=== PATIENT | male | born 1980 | race Caucasian/White ===

== ENCOUNTER 2022-12-13 14:55 | Inpatient (IN) | payer MEDICARE, OTHER ==
[~2022-12-13] VITALS: Ht 170.2 cm; Wt 89.8 kg
[2022-12-13] MEDS ORDERED: IV NS 0.9% 500 ML BAG IV ONE (15:30)
[2022-12-13] MEDS ORDERED: LAMO200T2 PO (15:46)
[2022-12-13] MEDS ORDERED: RISP1TAB7 PO (15:46)
[2022-12-13] MEDS ORDERED: ACET-868 PO (15:46)
[2022-12-13] MEDS ORDERED: AMLO5TAB4 PO (15:46)
[2022-12-13] MEDS ORDERED: LEVO150T8 PO (15:46)
[2022-12-13] MEDS ORDERED: ATOR10TA PO (15:46)
[2022-12-13] MEDS ORDERED: RISP0.5T5 PO (15:46)
[2022-12-13] MEDS ORDERED: TRAZ-182 PO (15:46)
[2022-12-13] MEDS ORDERED: OLANZAPINE 5 MG TABLET PO ONE (16:00)
[2022-12-13 16:32] LABS: APPEARANCE,URINE CLEAR (CLEAR); BILIRUBIN,URINE NEGATIVE (NEGATIVE); BLOOD, URINE NEGATIVE Ery/uL (NEGATIVE); COLOR,URINE YELLOW (YELLOW); KETONES,URINE NEGATIVE (NEGATIVE); LEUKOCYTE ESTERASE ,URINE NEGATIVE (NEGATIVE); NITRITE, URINE NEGATIVE (NEGATIVE); PH,URINE 6.5 (5.0-8.0); PROTEIN,URINE NEGATIVE (NEGATIVE); UGLUCOSE NEGATIVE (NEGATIVE); UROBILINOGEN,URINE 0.2 EU/dL (0.2)
[2022-12-13] MEDS ORDERED: ONDANSETRON HCL/PF 4 MG/2 ML VIAL IVP PRN (18:30)
[2022-12-13] MEDS ORDERED: ZOLPIDEM TARTRATE 5 MG TABLET PO PRN (18:30)
[2022-12-13] MEDS ORDERED: MAGNESIUM HYDROXIDE 30 ML UDC PO PRN (18:30)
[2022-12-13] MEDS ORDERED: MAG HYDROX/AL HYDROX/SIMETH 30 ML UDC PO PRN (18:30)
[2022-12-13] MEDS ORDERED: ACETAMINOPHEN 325 MG TABLET PO PRN ×2 (18:30→19:00)
[2022-12-13] MEDS ORDERED: Z GUARD REMEDY 4 OZ OINT TP PRN (18:30)
[2022-12-13 18:45] VITALS: BP 125/78; TEMP 97.4; O2SAT 98
[2022-12-13 20:00] VITALS: BP 119/75; TEMP 98.2; O2SAT 100
[2022-12-13] MEDS: LamoTRIgine 100 MG TABLET PO SCH (21:03)
[2022-12-13] MEDS: TRAZODONE 50 MG TABLET PO SCH (21:03)
[2022-12-13] MEDS: ATORVASTATIN 10 MG TABLET PO SCH (21:03)
[2022-12-14 04:00] VITALS: BP 119/72; TEMP 97.9; O2SAT 100
[2022-12-14 07:05] LABS: BASOPHILS % (AUTO) 0.3 % (0.0-2.0); EOSINOPHILS # (AUTO) 0.1 K/uL (0.0-0.7); EOSINOPHILS % (AUTO) 1.4 % (0.0-6.0); HEMATOCRIT 44 % (39-51); HEMOGLOBIN 14.8 g/dL (13.5-17.5); LYMPHOCYTES # (AUTO) 2.3 K/uL (0.8-4.8); LYMPHOCYTES % (AUTO) 38.2 % (20.0-44.0); MEAN CORPUSCULAR HEMOGLOBIN 32 PG (26.0-33.0); MEAN CORPUSCULAR HGB CONC 34 g/dl (31.0-36.0); MEAN CORPUSCULAR VOLUME 94 fL (80-96); MONOCYTES # (AUTO) 0.4 K/uL (0.1-1.30); MONOCYTES % (AUTO) 7.3 % (2.0-12.0); NEUTROPHILS # (AUTO) 3.2 K/uL (1.8-8.9); NEUTROPHILS % (AUTO) 52.8 % (43.0-81.0); PLATELET COUNT (AUTO) 214 K/uL (150-450); RED CELL DISTRIBUTION WIDTH 12.7 % (11.5-15.0)
[2022-12-14 07:21] LABS: THYROID STIMULATING HORMONE 4.984 uIU/mL (0.358-3.74)
[2022-12-14 07:34] LABS: CALCIUM, SERUM 9.4 mg/dL (8.5-10.1); CREATININE 0.8 mg/dL (0.6-1.3); MAGNESIUM 2.4 mg/dL (1.8-2.4); PHOSPHORUS 2.9 mg/dL (2.5-4.9)
[2022-12-14] MEDS: AMLODIPINE BESYLATE 5 MG TABLET PO SCH (08:04)
[2022-12-14] MEDS: risperiDONE 1 MG TABLET PO SCH (08:06)
[2022-12-14] MEDS: LEVOTHYROXINE SODIUM 50 MCG TABLET PO SCH (08:13)
[2022-12-14] MEDS: LamoTRIgine 100 MG TABLET PO SCH ×2 (08:14→21:46)
[2022-12-14 12:39] VITALS: BP 123/76; TEMP 98.8; O2SAT 88
[2022-12-14 16:00] VITALS: BP 113/68; TEMP 98.1; O2SAT 99
[2022-12-14] MEDS ORDERED: risperiDONE 1 MG TABLET PO SCH (17:00)
[2022-12-14 20:00] VITALS: BP 118/66; TEMP 98.1; O2SAT 99
[2022-12-14] MEDS: TRAZODONE 50 MG TABLET PO SCH (21:45)
[2022-12-14] MEDS: ATORVASTATIN 10 MG TABLET PO SCH (21:46)
[2022-12-15 05:00] VITALS: BP 113/71; TEMP 97.9; O2SAT 98
[2022-12-15] MEDS: LEVOTHYROXINE SODIUM 50 MCG TABLET PO SCH (07:40)
[2022-12-15 08:00] VITALS: BP 115/69; TEMP 98.2; O2SAT 100
[2022-12-15] MEDS: LamoTRIgine 100 MG TABLET PO SCH ×2 (08:11→21:06)
[2022-12-15] MEDS: risperiDONE 1 MG TABLET PO SCH ×2 (08:12→16:02)
[2022-12-15] MEDS: AMLODIPINE BESYLATE 5 MG TABLET PO SCH (08:24)
[2022-12-15 16:00] VITALS: BP 118/82; TEMP 98.5; O2SAT 100
[2022-12-15 20:00] VITALS: BP 123/83; TEMP 97.8; O2SAT 100
[2022-12-15] MEDS: TRAZODONE 50 MG TABLET PO SCH (21:06)
[2022-12-15] MEDS: ATORVASTATIN 10 MG TABLET PO SCH (21:06)
[2022-12-16 04:00] VITALS: BP 114/74; TEMP 97.9; O2SAT 100
[2022-12-16] MEDS: LEVOTHYROXINE SODIUM 50 MCG TABLET PO SCH (07:48)
[2022-12-16 08:00] VITALS: BP 117/76; TEMP 98.2; O2SAT 100
[2022-12-16 08:11] VITALS: BP 121/77
[2022-12-16] MEDS: AMLODIPINE BESYLATE 5 MG TABLET PO SCH (08:11)
[2022-12-16] MEDS: LamoTRIgine 100 MG TABLET PO SCH (08:11)
[2022-12-16] MEDS: risperiDONE 1 MG TABLET PO SCH (08:11)
== END 2022-12-16 15:57 | DRG 641 ==
LOC: ER 14:55 → MEDSG1 18:04
PROVIDERS: ADMIT Student in an Organized Health Care Education/Training Program
DX: R62.7 Adult failure to thrive (principal); F20.0 Paranoid schizophrenia; I10 Essential (primary) hypertension; E78.5 Hyperlipidemia, unspecified; E03.9 Hypothyroidism, unspecified; Z79.890 Hormone replacement therapy; Z79.899 Other long term (current) drug therapy; F29 Unspecified psychosis not due to a substance or known physiological condition
CPT/HCPCS: 36415; 71045-TC; 80048-TC; 83735-TC; 84100-TC; 84443-TC; 85025-TC; 87081-TC; 87086-TC; G0378